=== PATIENT | female | born 1960 | race Caucasian/White ===

== ENCOUNTER 2019-03-12 08:18 | Day surgery (SDC) | payer OTHER, SELFPAY ==
[2019-03-09 13:12] VITALS: BMI 42.8
[2019-03-12] VITALS (12 sets, daily range): BP systolic 92–162; BP diastolic 35–80; PULSE 51–77; RESP 10–20; TEMP 36.4–36.6; O2SAT 93–99; BMI 42.8
[2019-03-12] MEDS: LACTATED RINGERS 1,000 ML 42 ML IV ×2 (08:54→12:25)
--- NOTE | 2019-03-12 10:47 | PM.PREOP ---
Pre-operative Note Interval Note History & Physical reviewed/Exam performed by Physician: Yes Changes to H&P: No
--- NOTE | 2019-03-12 10:48 | PM.OP.1 ---
Operative Date/Time/Diagnoses Date of procedure: 03/12/19 Time of procedure: 10:48 Pre-op diagnosis: Left bone spur and Achilles tendonitis Post-op diagnosis: same Procedure & Clinicians Procedure: Left retrocalcaneal exostectomy with Achilles tendon debridement and anchoring Same procedure as scheduled: Yes Indications: Painful left heel and Achilles. Conservative measures failed to alleviate her pain and she wished to have surgical intervention at this time. Surgeon: Nuris Martines Click Yes if Unassisted: Yes Anesthesia Type: General Operative Notes Closure Type: primary Specimen(s): none sent Prosthetic devices, grafts, tissues, transplants, or devices: Arthrex speed bridge Estimated Blood Loss (mL): 20 Blood products transfused: none Procedure in detail: Patient was brought to the operating room. On the gurney, general anesthesia was rendered by the anesthesiologist. Next she was carefully positioned prone on operative table, well padded and appropriately aligned. The foot and ankle were prepped and draped in the usual aseptic manner. The tourniquet was inflated to the thigh. After a check of anesthesia incision was made on the posterior aspect of the left calcaneus at the insertion point of the Achilles to the heel. The incision was deepened through subcutaneous tissues being careful to identify and retract all vital neural and vascular structures. All bleeders were cauterized and ligated as necessary. The capsule surrounding the Achilles tendon was gently opened and reflected and the enlarged insertion point of the Achilles tendon was noted. The insertion was divided centrally and Achilles tendon was reflected laterally and medially. This exposed areas of the tendon that were significantly thickened as well as areas that included mild calcifications within the distal lateral tendon. These bony prominences within tendon and calcifications were gently removed and some of the extraordinarily thickened scarred areas of the tendon distally were also reduced. A osteotome was used to chamfer away the posterior spurring of the calcaneus. This was then gently smoothed with a rasp. The area was irrigated with copious amounts of normal sterile saline. Following the technique of the Arthrex SpeedBridge, drill holes were placed proximally on the posterior aspect of the calcaneus medially and laterally. This was then tapped and each anchor was inserted. Once appropriately seated the FiberWire attached to the anchor was brought up through the Achilles tendon at the appropriate location. Next, distally on the calcaneus another set of 2 holes were drilled in the same manner and tapped. Following the speed bridge protocol, under appropriate tension threading each of the 2 sides of the more proximal anchors' suture, this was then placed in each of the holes. Each of these 2 anchors were then seated appropriately and was under good tension. Excess fiber tape was trimmed. A free needle was used to take some of the included FiberWire suture on each side and reinforce the attachment. Care was taken to not make this a proud knot. 3-0 Vicryl was used to reinforce and repair the remainder of the Achilles tendon and range of motion was available and strong. The area was irrigated once more with normal sterile saline and the tourniquet was deflated. A prompt hyperemic response was seen to the foot and ankle. Tendon capsule was then repaired and subcutaneous closure was performed with Vicryl. Skin was closed with nylon and she was placed in a sterile lightly compressive dressing. She was then also placed in her postoperative boot. She was transferred to the PACU with vital signs stable and vascular status intact. Complications: none Post-operative Condition: stable Disposition: PACU Plan for aftercare: Following a period of postoperative monitoring, the patient be discharged home on written and oral postoperative instructions including keeping the dressing dry and intact, nonweightbearing on the operative foot, icing and elevating the foot when seated home. DVT prevention techniques have been reviewed. For the 1st postoperative visit the dressing will be changed and close to the 3rd postoperative week we will likely be able to begin a transition to partial weight-bearing.
[2019-03-12] MEDS: CEFAZOLIN 2 GM/100 ML FROZ.PIGGY IV (11:00)
[2019-03-12] MEDS: BUPIVACAINE 0.5% (PF) VIAL 30 ML INJ (11:15)
[2019-03-12] MEDS: HYDROMORPHONE 2 MG INJ 0.5 MG IV ×4 (13:15→13:30)
[2019-03-12] MEDS: HYDROCODONE/ACET 5/325 TABLET 1 TAB PO (13:32)
== END 2019-03-12 14:25 | disposition home or self-care (01) ==
LOC: OR 08:28
PROVIDERS: Family Provider Family Medicine; PCP Family Medicine; Visit Provider Podiatrist
PROC: (CPT 28119; principal; 2019-03-12 09:45)
PROC: (CPT 27650; 2019-03-12 09:45)
DX: M76.62 Achilles tendinitis, left leg (principal); M77.32 Calcaneal spur, left foot; M19.072 Primary osteoarthritis, left ankle and foot; E66.9 Obesity, unspecified; Z68.41 Body mass index [BMI] 40.0-44.9, adult; I48.91 Unspecified atrial fibrillation
CPT/HCPCS: 27654; 28120; J0330; J0690; J1100; J1170; J2405; J2704; J3010

== ENCOUNTER → 2019-10-04 11:05 | Outpatient (CLI) | payer OTHER, SELFPAY ==
--- NOTE | 2019-10-04 | DI.RAD.S_ITS ---
PROCEDURE: XR CALCANEOUS LT MIN 2V INDICATIONS: Achilles tendinitis, left leg TECHNIQUE: Two views of the calcaneus were acquired. COMPARISON: None. FINDINGS: Bones: No fractures or dislocations. No suspicious bony lesions. A plantar calcaneal spur is seen. There is a relatively prominent Achilles insertion spur, fragmentation. Soft tissues: No suspicious calcifications. Achilles tendon appears normal. IMPRESSION: Relatively prominent Achilles insertion spur, with fragmentation. A plantar calcaneal spur is also seen. Dictated by: Gallito Martinez M.D. on 10/04/2019 at 10:39 Approved by: Gallito Martinez M.D. on 10/04/2019 at 10:41
--- NOTE | 2019-10-04 | DI.MRI.S_ITS ---
PROCEDURE: MR ANKLE LT WO CON INDICATIONS: Achilles tendinitis, left leg TECHNIQUE: Noncontrast sagittal T1 spin echo and T2 fast spin echo with fat saturation, axial proton density fast spin echo and T2 fast spin echo with fat saturation, coronal T1 spin echo and T2 fast spin echo with fat saturation through the ankle/hindfoot. COMPARISON: [facility], CR, XR ANKLE 3+ VIEWS LEFT, 12/29/2018, 14:44. FINDINGS: Image quality: Excellent. Bones and joints: No bone marrow contusions or fractures. No hindfoot coalitions. No osteochondral injuries of the talar dome. No pathologic joint effusions. Medial structures: The posterior tibialis, flexor digitorum longus, and flexor hallucis longus tendons are intact. The posterior tibial neurovascular bundle appears normal within the tarsal tunnel, without extrinsic mass effect. The deep layer (anterior and posterior tibiotalar ligaments) and superficial layer (tibionavicular, tibiospring, and tibiocalcaneal ligaments) of the deltoid ligament appear normal. The spring ligament components (superomedial calcaneonavicular, medioplantar oblique calcaneonavicular, and inferoplantar longitudinal ligaments) are intact. Lateral structures: The anterior talofibular, calcaneofibular, and posterior talofibular ligaments appear intact. More superiorly, the anterior and posterior tibiofibular ligaments appear intact, as is the intermalleolar ligament. The tibiofibular syndesmosis is normal in width at 2 mm or less. The peroneus longus and brevis tendons demonstrate normal location. Peroneal brevis and longus tendons are thickened compatible with mild tendinopathy. Adjacent bony peroneal tubercle and retrotrochlear prominence are normal in size. The sinus tarsi demonstrates normal fatty signal, without edema, fibrosis, or cyst formation. Visualized sinus tarsi components (cervical ligament, interosseous talocalcaneal ligament, roots of the inferior extensor retinaculum) appear normal. The calcaneonavicular and calcaneocuboid components of the bifurcate ligament appear intact. The dorsal calcaneocuboid ligament appears intact. Anterior structures: The tibialis anterior, extensor hallucis longus, and extensor digitorum longus tendons appear intact. The dorsal talonavicular ligament appears intact. Posterior and plantar structures: Postsurgical changes compatible with Achilles tendon repair are noted. There is thickening and increased T2 signal within the distal Achilles tendon along with pre-Achilles edema and fluid in the pre-Achilles bursa which could represent postsurgical change versus acute superimposed on chronic tendinopathy. The repaired Achilles tendon is intact. There is thickening of the medial band of the plantar fascia compatible with chronic fasciitis. Lateral band of the plantar fascia is normal thickness. No abductor digiti quinti muscle atrophy to suggest Salgado neuropathy. IMPRESSION: 1. Status post Achilles tendon repair. No recurrent Achilles tendon tear. 2. Thickening and increased internal signal involving the repaired Achilles tendon which could represent postsurgical change versus acute superimposed upon chronic tendinopathy. 3. Mild peroneal brevis and longus tendinopathy. 4. Chronic medial band plantar fasciitis. Dictated by: Kenia Winchester MD, PhD on 10/04/2019 at 12:30 Approved by: Kenia Winchester MD, PhD on 10/05/2019 at 13:14
== END ==
PROVIDERS: Family Provider Family Medicine; PCP Family Medicine; Referring Provider Family Medicine; Visit Provider Podiatrist
DX: M76.62 Achilles tendinitis, left leg (principal); M79.672 Pain in left foot; M77.32 Calcaneal spur, left foot; M72.2 Plantar fascial fibromatosis
CPT/HCPCS: 73650; 73721

== ENCOUNTER → 2022-01-31 15:14 | Outpatient (CLI) | payer OTHER, SELFPAY ==
[2022-01-31 16:28] LABS: COVID19 -Nasal RAPID POSITIVE (Negative)
== END ==
PROVIDERS: Family Provider Family Medicine; PCP Student in an Organized Health Care Education/Training Program; Visit Provider Obstetrics & Gynecology
DX: U07.1 COVID-19 (principal)
CPT/HCPCS: 87635

== ENCOUNTER → 2022-03-28 09:42 | Outpatient (CLI) | payer OTHER, SELFPAY ==
[2022-03-28 10:41] LABS: COVID19 -Nasal RAPID Negative (Negative)
== END ==
PROVIDERS: Family Provider Family Medicine; PCP Student in an Organized Health Care Education/Training Program; Visit Provider Obstetrics & Gynecology
DX: Z20.822 Contact with and (suspected) exposure to COVID-19 (principal); Z01.812 Encounter for preprocedural laboratory examination
CPT/HCPCS: 87635

== ENCOUNTER 2022-03-29 08:02 | Day surgery (SDC) | payer OTHER, SELFPAY ==
[2022-03-26 07:59] VITALS: BMI 43.0
[2022-03-29] VITALS (8 sets, daily range): BP systolic 111–139; BP diastolic 48–72; PULSE 68–94; RESP 11–23; TEMP 36.2–36.4; O2SAT 95–97; BMI 42.9
[2022-03-29] MEDS: LACTATED RINGERS 1,000 ML 42 ML IV ×2 (08:54→14:51)
--- NOTE | 2022-03-29 13:45 | PM.PREOP ---
Pre-operative Note COVID-19 COVID-19 status: Negative Result date/Date tested (Pos, Neg/Pending): 03/28/22 Criteria for continued procedure: Non-surgical alternatives not available or appropriate per current SOC Interval Note History & Physical reviewed/Exam performed by Physician: Yes Changes to H&P: No
--- NOTE | 2022-03-29 15:15 | SUR.OPER ---
Lithotomy on padded OR bed, head on pillow, arms secured on padded arm boards at <90 degrees abduction. Legs secured in padded yellow fins stirrups.
--- NOTE | 2022-03-29 15:45 | P.OP_ITS ---
Operative Date/Time/Diagnoses Date of procedure: 03/29/22 Time of procedure: 14:40 Pre-op diagnosis: Post-menopausal bleeding Endometrial thickening Cervical stenosis Post-op diagnosis: same Procedure & Clinicians Procedure: Procedures Operation Date: 03/29/22 09:15 Actual Procedure Side Surgeon p Exam under anesthesia, cervical dilation (failed) Jose Carlos Neely MD Indications: Celeste is a 61-year-old A1, LMP at approximately age 52, who presents for evaluation of postmenopausal spotting after her primary care provider attempted to do an endometrial biopsy which was unsuccessful due to cervical stenosis.? Patient experienced menarche at age 14 and throughout her reproductive life has experienced irregular menses.? She was placed on oral contraceptives at age 18 and has been on oral contraceptives through much of her adult reproductive life.? She continued oral contraceptives until the age of 52 when she discontinued them and was menopausal thus had no further episodes of menses or spotting/bleeding.? She has never taken hormone replacement therapy.? Proximally 3 years ago she began having intermittent spotting and brownish discharge.? Pelvic ultrasound performed at [facility] on 11/02/2021 shows the uterus to be anteverted and normal in size measuring 7-8 cm in length and 4.7 cm in with an about 3.5 cm in the anterior-posterior dimension.? There were no uterine masses noted in the endometrial canal echo shows no discrete focal mass.? It is mildly borderline in thickness for a postmenopausal women who is not on HRT with the endometrial stripe did ranging from 5-7 mm.? In addition within the endocervical canal there is a trace of fluid.? The ovaries were unable to be v isualized.? ROS is notable for minimally symptomatic COVID infection diagnosed 12/14/2021 with negataive COVID test 12/19/2021.? After counseling and consideration of all options, the patient is opting for hysteroscopy with possible biopsies and dilation and curettage of uterus rather than attempt another in-office endometrial biopsy.? Her surgery is scheduled for 02/01/2022 in the [facility] and she presents today for pher scheduled surgery. Surgeon: Jose Carlos Neely Anesthesia Type: General Operative Notes Findings: Exam under anesthesia shows a normal vaginal canal with a small/normal size retroverted uterus and no palpable adnexal masses. The tract of the endocervical canal could not be identified during the course of surgery, therefore no dilation was able to be performed, and planned performance of hysteroscopy/D&C aborted. Closure Type: not applicable Specimen(s): none Estimated blood loss (mL): 10 Blood products transfused: none Procedure in detail: With the patient under satisfactory general anesthesia in the modified dorsal lithotomy position, the vagina, perineum, and lower abdomen were prepped and draped for hysteroscopy/D&C. A pre-surgical safety time-out was then taken in accordance with [facility] OR protocols. Examination under anesthesia was performed. A bivalve speculum was placed in the vagina and the cervix grasped with a single-tooth tenaculum. A flexible os finder was introduced into the stenotic os but could not be passed beyond proximally 1-2 cm. Attempts to follow the endocervical tract with the smallest available dilator was unsuccessful and therefore due to concerns of creating a false tract risking bleeding and/or injury to adjacent structures, the decision was made to abort the procedure and discuss potential next steps with the patient postoperatively. A small tear of the anterior lip of the cervix was repaired with a 3-0 chromic [id number] stitch and the speculum was removed from the vagina. The procedure was terminated and the patient awakened. She was then transferred to the PACU for a period of observation and recovery. Complications: none Post-operative Condition: stable Disposition: PACU Plan for aftercare: Routine postoperative care. Patient will return in 2 weeks to discuss potential next steps for evaluation of her postmenopausal bleeding with slight thickening of the endometrial stripe.
--- NOTE | 2022-04-04 12:45 | PM.GYNHP.1 ---
History of Present Illness History of Present Illness Narrative: Celeste is a 61-year-old A1, LMP at approximately age 52, who presents for evaluation of postmenopausal spotting after her primary care provider attempted to do an endometrial biopsy which was unsuccessful due to cervical stenosis.? Patient experienced menarche at age 14 and throughout her reproductive life has experienced irregular menses.? She was placed on oral contraceptives at age 18 and has been on oral contraceptives through much of her adult reproductive life.? She continued oral contraceptives until the age of 52 when she discontinued them and was menopausal thus had no further episodes of menses or spotting/bleeding.? She has never taken hormone replacement therapy.? Proximally 3 years ago she began having intermittent spotting and brownish discharge.? Pelvic ultrasound performed at [facility] on 11/02/2021 shows the uterus to be anteverted and normal in size measuring 7-8 cm in length and 4.7 cm in with an about 3.5 cm in the anterior-posterior dimension.? There were no uterine masses noted in the endometrial canal echo shows no discrete focal mass.? It is mildly borderline in thickness for a postmenopausal women who is not on HRT with the endometrial stripe did ranging from 5-7 mm.? In addition within the endocervical canal there is a trace of fluid.? The ovaries were unable to be visualized.? ROS is notable for minimally symptomatic COVID infection diagnosed 12/14/2021 with negataive COVID test 12/19/2021.? After counseling and consideration of all options, the patient is opting for hysteroscopy with possible biopsies and dilation and curettage of uterus rather than attempt another in-office endometrial biopsy.? Her surgery is scheduled for 02/01/2022 in the [facility] and she presents today for her scheduled surgery. [facility] Medical History Achilles tendonitis, bilateral Acid reflux COVID-19 virus infection (12/14/21) COVID-19 virus infection (01/31/22) Hypothyroid Migraines Osteoarthritis of left ankle Osteoarthritis of right ankle and foot Surgical History History of ankle surgery History of History of repair of left rotator cuff History of repair of right rotator cuff Hx of foot surgery (03/12/19) S/P ablation of atrial fibrillation Status post left foot surgery [place] teeth removed Social History household members: spouse Smoking Status: Never smoker alcohol intake: current Meds Home Medications and Allergies Home Medications Medication Instructions Recorded Confirmed Type fluticasone propionate 50 2 spray intranasal DAILY 03/09/19 03/29/22 History mcg/actuation nasal spray,suspension (Flonase Allergy Relief) levothyroxine 25 mcg tablet 75 mcg PO DAILY 03/09/19 03/29/22 History (Synthroid) loratadine 10 mg tablet 10 mg PO DAILY 03/09/19 03/29/22 History valacyclovir 500 mg tablet 500 mg PO DAILY 03/09/19 03/29/22 History (Valtrex) krill oil 500 mg capsule 500 mg PO DAILY 01/25/22 03/29/22 History ovckzgec-jkgi-fxemdwtj-folic acid 1 cap PO DAILY 01/25/22 03/29/22 History 66.7 mcg-biotin 1,666.7 mcg capsule (Hair, Skin and Nails-Argan Oil) omeprazole 20 mg tablet,delayed 20 mg PO DAILY PRN GI upset 01/25/22 03/29/22 History release Allergies Allergy/AdvReac Type Severity Reaction Status Date / Time clindamycin AdvReac Mild Abdominal Verified 03/29/22 15:31 Pain Review of Systems Review of Systems Narrative: Problem-specific ROS positives included in HPI Exam Vital Signs (past 8 hours): Oxygen Delivery Method Room Air Const General: cooperative and comfortable Nutritional Appearance: average body habitus Orientation: alert and oriented x3 HENMT Head: normal to inspection, atraumatic and abrasion Ears: hearing grossly normal bilaterally Face and sinus: face symmetric Eyes General: appearance normal, both eyes and all related structures Conjunctivae: conjunctivae normal Sclera: sclerae normal EOM: EOM intact bilaterally Neck Neck: normal visual inspection Resp Effort & Inspection: normal respiratory effort and able to speak in complete sentences Auscultation: clear to auscultation bilaterally Cardio Rate: regular rate Rhythm: regular rhythm Heart Sounds: S1 normal, S2 normal and no murmurs GI Inspection: normal to inspection Palpation: soft, no hepatosplenomegaly and No tender External Female Exam: normal external appearance Speculum Exam - Vagina: normal appearance of the vagina and normal vaginal discharge Speculum Exam - Cervix: normal appearance of the cervix and cervical os open Bimanual Exam- Vagina & Uterus: normal bimanual exam, uterine size normal and non-tender Bimanual Exam- Adnexa, other: normal adnexae, no masses and non-tender OB/External & Speculum: cervical os open Extrem General: no calf tenderness Psych Appearance: grossly normal Mental Status: mental status grossly normal Speech and Movement: speech and movement normal Mood: congruent mood Affect: normal affect Attitude: cooperative Thought Process: normal Thought Content: normal Judgment: judgment good Assessment & Plan Assessment and plan (1) Postmenopausal bleeding: Status: Acute (2) Abnormal vaginal bleeding with endometrial thickness greater than 5 mm present on transvaginal ultrasound in postmenopausal patient: Status: Acute (3) VALORIE (stress urinary incontinence, female): Status: Acute Plan Patient counseled regarding alternatives, risks, benefits, and potential complications associated with hysteroscopy with possible biopsies and dilation and curettage of the uterus.? With full understanding of the above, a written consent was executed, signed, and witnessed this date. Time Spent With Patient Critical Care time: I spent a total of [] minutes of critical care time on this patient's care today; this time is exclusive of procedural time.
== END 2022-03-29 16:15 | disposition home or self-care (01) ==
PROVIDERS: Family Provider Family Medicine; Referring Provider Obstetrics & Gynecology; Visit Provider Obstetrics & Gynecology
PROC: 0UDB8ZZ Extraction of Endometrium, Via Natural or Artificial Opening Endoscopic (ICD-10-PCS; CPT 58558; principal; 2022-03-29 09:15)
DX: N95.0 Postmenopausal bleeding (principal); R93.89 Abnormal findings on diagnostic imaging of other specified body structures; N88.2 Stricture and stenosis of cervix uteri
CPT/HCPCS: 57410; J1100; J2250; J2405; J2704; J3010

== ENCOUNTER 2023-05-02 10:48 | Emergency (ER) | payer OTHER, SELFPAY ==
[2023-05-02 10:51] VITALS: BP 192/76; PULSE 90; RESP 18; TEMP 36.6; O2SAT 97; BMI 44.8
[2023-05-02 11:29] LABS: Bacteria Urine Few (2-10); Culture Indicated Urine Cult Not Indicated; RBC Urine 1-5/HPF (0-5/HPF); Squamous Epithelial Cell Urine 0-1 /HPF (0-5/HPF); WBC Urine 0-1/HPF (0-5/HPF)
--- NOTE | 2023-05-02 11:35 | ED.FEMALEGU ---
HPI - Female Genitourinary <Angelina Raza PA-C - Last Filed: 05/02/23 12:19> General Chief complaint: Urogenital-Female Stated complaint: poss UTI Time Seen by Provider: 05/02/23 11:32 Source: patient Mode of arrival: Ambulatory History of Present Illness HPI Narrative: 62-year-old female with history of diabetes who presents today with 3 days of dysuria frequency and 1 episode of hematuria. She denies fever or chills or back pain or abdominal pain. She denies nausea vomiting. She reports having a urinary tract infection about 20 years ago and none since. She feels the onset was secondary to increase in bowel movements having started metformin recently. Related Data Home Medications Medication Instructions Recorded Confirmed fluticasone propionate 50 2 spray intranasal DAILY 03/09/19 03/29/22 mcg/actuation nasal spray,suspension (Flonase Allergy Relief) levothyroxine 25 mcg tablet 75 mcg PO DAILY 03/09/19 03/29/22 (Synthroid) loratadine 10 mg tablet 10 mg PO DAILY 03/09/19 03/29/22 valacyclovir 500 mg tablet 500 mg PO DAILY 03/09/19 03/29/22 (Valtrex) krill oil 500 mg capsule 500 mg PO DAILY 01/25/22 03/29/22 ydesnkke-muou-karrfoeb-folic acid 1 cap PO DAILY 01/25/22 03/29/22 66.7 mcg-biotin 1,666.7 mcg capsule (Hair, Skin and Nails-Argan Oil) omeprazole 20 mg tablet,delayed 20 mg PO DAILY PRN GI upset 01/25/22 03/29/22 release Previous Rx's Medication Instructions Recorded ibuprofen 600 mg tablet (IBU) 600 mg PO Q8H PRN pain #10 tabs 05/02/23 nitrofurantoin macrocrystal 100 mg 100 mg PO BID 5 days #10 caps 05/02/23 capsule phenazopyridine 100 mg tablet 100 mg PO TID #7 tabs 05/02/23 (Pyridium) Allergies Allergy/AdvReac Type Severity Reaction Status Date / Time clindamycin AdvReac Mild Abdominal Verified 05/02/23 10:54 Pain Review of Systems <Angelina Raza PA-C - Last Filed: 05/02/23 12:19> Review of Systems Narrative: GENERAL: Denies chills, fatigue, malaise, fever, sweats. HEENT: Denies sinus pain, ear pain, sore throat, difficulty swallowing, dizziness. RESPIRATORY: Denies dyspnea, cough, wheezing, hemoptysis, sputum. CARDIOVASCULAR: Denies chest pain, palpitations, orthopnea, edema, GASTROINTESTINAL: Denies nausea, vomiting, abdominal pain, constipation, melena. : Positive for urinary frequency, dysuria, mild hematuria. MUSCULOSKELETAL: denies weakness, joint pain, or bony pain SKIN: Denies rash, skin lesions, or other NEUROLOGIC: Denies weakness, headache, numbness, change in speech, confusion, seizures, incoordination. PSYCHIATRIC: No concerning psychosocial issues. 12 point review of systems is negative except for those stated above Patient History <Angelina Raza PA-C - Last Filed: 05/02/23 12:19> Medical History Achilles tendonitis, bilateral Acid reflux COVID-19 virus infection (12/14/21) COVID-19 virus infection (01/31/22) Hypothyroid Migraines Osteoarthritis of left ankle Osteoarthritis of right ankle and foot Surgical History History of ankle surgery History of History of repair of left rotator cuff History of repair of right rotator cuff Hx of foot surgery (03/12/19) S/P ablation of atrial fibrillation Status post left foot surgery [place] teeth removed alcohol intake frequency: holidays/special occasions only Substance Use Type: does not use Exam <Angelina Raza PA-C - Last Filed: 05/02/23 12:19> Narrative Exam Narrative: GEN: AOx3 and in no distress. EYES: Pupils are equal, round, and reactive to light and accommodation. Extraoccular muscles are intact bilaterally. There is no subconjunctival hemorrhage or exudate. CHEST: Lungs are clear to auscultation bilaterally and free of wheezes, rales, or rhonchi. Heart rate is regular rhythm, there are no murmurs, clicks, rubs, or gallops. There is no chest wall tenderness. ABD: Abdomen is soft and nontender. There is no guarding or rebound. No CVA tenderness to palpation. EXT: Full painless ROM of all extremities with no loss of sensation or strength. SKIN: Warm, pink, and dry. No erythema or rash Initial Vital Signs Initial Vital Signs: Vital Signs Temperature 97.9 F 05/02/23 10:51 Pulse Rate 90 05/02/23 10:51 Respiratory Rate 18 05/02/23 10:51 Blood Pressure 192/76 H 05/02/23 10:51 Pulse Oximetry 97 05/02/23 10:51 Oxygen Delivery Method Room Air 05/02/23 10:51 <Kaye Sandoval MD - Last Filed: 05/02/23 12:35> Initial Vital Signs Initial Vital Signs: Vital Signs Temperature 97.9 F 05/02/23 10:51 Pulse Rate 90 05/02/23 10:51 Respiratory Rate 18 05/02/23 10:51 Blood Pressure 192/76 H 05/02/23 10:51 Pulse Oximetry 97 05/02/23 10:51 Oxygen Delivery Method Room Air 05/02/23 10:51 Course <Angelina Raza PA-C - Last Filed: 05/02/23 12:19> Orders Ordered: ED Orders 05/02/23 11:00 Urine Microscopic Stat 05/02/23 12:11 Urine Culture Stat Discontinued Medications Ondansetron HCl (Ondansetron 4 Mg Odt) 4 mg SL NOW PRN PRN Reason: Nausea And Vomiting Vital Signs Vital signs: Vital Signs - 8 hr 05/02/23 10:51 05/02/23 12:04 Temperature 97.9 F Pulse Rate 90 80 Respiratory Rate 18 20 Blood Pressure 192/76 H 159/76 H Pulse Oximetry 97 95 Oxygen Delivery Method Room Air Room Air <Kaye Sandoval MD - Last Filed: 05/02/23 12:35> Orders Ordered: ED Orders 05/02/23 11:00 Urine Microscopic Stat 05/02/23 12:11 Urine Culture Stat Discontinued Medications Ondansetron HCl (Ondansetron 4 Mg Odt) 4 mg SL NOW PRN PRN Reason: Nausea And Vomiting Vital Signs Vital signs: Vital Signs - 8 hr 05/02/23 10:51 05/02/23 12:04 Temperature 97.9 F Pulse Rate 90 80 Respiratory Rate 18 20 Blood Pressure 192/76 H 159/76 H Pulse Oximetry 97 95 Oxygen Delivery Method Room Air Room Air MDM - Female Genitourinary <Angelina Raza PA-C - Last Filed: 05/02/23 12:19> Lab Data Labs: Lab Results 05/02/23 Range/Units 11:00 Urine RBC 1-5/hpf (0-5/HPF) Urine WBC 0-1/hpf (0-5/HPF) Ur Squamous Epith Cells 0-1 /hpf (0-5/HPF) Urine Bacteria Few (2-10) H (None) Ur Culture Indicated? Cult not indicated Urine Dip Bedside Urine Glucose Negative Bedside Urine Bilirubin - Negative Bedside Urine Ketone - Negative Urine Specific [place] 1.020 Bedside Urine Occult Blood + Bedside Urine pH 6.0 Bedside Urine Protein - Negative Bedside Urine Urobilinogen +/- 1mg Bedside Urine Nitrite - Negative Bedside Urine Leukocytes - Negative Esterase MDM Narrative Medical decision making narrative: MDM * differential diagnosis includes but not limited to cystitis, urethritis, kidney stone, bladder infection. * Prior records reviewed: History of diabetes with recent A1c of 6.0 it * My lab interpretation: Negative for leukocytes and nitrites, 1+ blood, micro sent. * My imgaing interpretation: * Clinical Decision Rules/Scores evaluated: * Independent discussions with: ED Course: Even though UA dip here isn't significant for UTI eye, patient has history is suspicious for bacterial infection. So I am going to go ahead and treat her with 5 days of Macrobid. She agrees to finish the course. Pyridium for comfort and ibuprofen for discomfort. Shared Decision Making: Patient verbalizes agreement with the plan Social Considerations: None Disposition: Discharged to home. <Kaye Sandoval MD - Last Filed: 05/02/23 12:35> Lab Data Labs: Lab Results 05/02/23 Range/Units 11:00 Urine RBC 1-5/hpf (0-5/HPF) Urine WBC 0-1/hpf (0-5/HPF) Ur Squamous Epith Cells 0-1 /hpf (0-5/HPF) Urine Bacteria Few (2-10) H (None) Ur Culture Indicated? Cult not indicated Urine Dip Bedside Urine Glucose Negative Bedside Urine Bilirubin - Negative Bedside Urine Ketone - Negative Urine Specific [place] 1.020 Bedside Urine Occult Blood + Bedside Urine pH 6.0 Bedside Urine Protein - Negative Bedside Urine Urobilinogen +/- 1mg Bedside Urine Nitrite - Negative Bedside Urine Leukocytes - Negative Esterase Discharge Plan Departure Patient Disposition: Home Clinical Impression: Cystitis Instructions: DI for Urinary Tract Infection (UTI) Activity Restrictions/Additional Instructions: You have symptoms of a urinary tract infection today although your urine dipstick did not indicate significant infection. However given your symptoms and history I feel it is fine to take a course of antibiotics. Please complete the entire course. The Pyridium is generally an as-needed medication which will help with the pain when you urinate. You can take the ibuprofen 2 to 3 times a day to help with pain as well. Hydrate well wipe from front to, clean the perineal area after bowel movement. Return for any onset of fever, sudden onset back pain or other concerning symptoms. Rachele to care for you today. Prescriptions: New nitrofurantoin macrocrystal 100 mg capsule 100 mg PO BID 5 Days Qty: 10 0RF Rx Instructions: must administer with a meal/food phenazopyridine [Pyridium] 100 mg tablet 100 mg PO TID Qty: 7 0RF ibuprofen [IBU] 600 mg tablet 600 mg PO Q8H MDD 2400 mg PRN (Reason: pain) Qty: 10 0RF No Action Hair, Skin and Nails-Argan Oil 66.7-1,666.7 mcg capsule 1 cap PO DAILY krill oil 500 mg capsule 500 mg PO DAILY omeprazole 20 mg tablet,delayed release (DR/EC) 20 mg PO DAILY PRN (Reason: GI upset) valacyclovir [Valtrex] 500 mg Tablet 500 mg PO DAILY levothyroxine [Synthroid] 25 mcg Tablet 75 mcg PO DAILY fluticasone propionate [Flonase Allergy Relief] 50 mcg/actuation [place],Suspension 2 spray INTRANASAL DAILY loratadine 10 mg Tablet 10 mg PO DAILY Referrals: Provider,Kyaw FRIEDMAN [Primary Care Provider] - Stand Alone Forms: Patient Portal/API ED Sign-out <Kaye Sandoval MD - Last Filed: 05/02/23 12:35> Cosign ED Attending Cosignature Attestation: I did not see this patient. I was available all times for consultation.
[2023-05-02 12:04] VITALS: BP 159/76; PULSE 80; RESP 20; O2SAT 95
== END 2023-05-02 12:06 | disposition home or self-care (01) ==
PROVIDERS: Emergency Medicine; Emergency Provider Physician Assistant; Family Provider Family Medicine
DX: N30.90 Cystitis, unspecified without hematuria (principal)
CPT/HCPCS: 81003; 81015; 99282; 99283

== ENCOUNTER → 2024-10-22 07:39 | Outpatient (CLI) | payer OTHER, SELFPAY ==
--- NOTE | 2024-10-22 07:41 | DI.MRI.S_ITS ---
PROCEDURE: MR HIP RT WO CON INDICATIONS: rt hip pain TECHNIQUE: Noncontrast coronal T1 spin echo and STIR through the bony pelvis. Coronal and axial T2 fast spin echo with fat saturation, sagittal T1 spin echo, and oblique axial T2 fast spin echo with fat saturation through the hip. COMPARISON: None. FINDINGS: Image quality: Excellent. Bones: Mild marrow edema and subchondral cyst formation is present at the right lateral acetabular roof (3/24). The bone marrow signal is otherwise normal. There is no evidence of acute fracture, osteonecrosis, or acetabular dysplasia. There is normal morphology of the femoral heads. Joints: The sacroiliac joints are preserved, without reactive marrow changes. There is mild bilateral hip osteoarthritis. There is no significant right hip joint effusion or pericapsular edema. Acetabular cartilage: There is deep partial thickness chondral loss at the right acetabulum overlying the area of subchondral cyst formation (6/9). Labrum: There is blunting of the right hip anterior-superior labrum, likely secondary to chronic labral tearing. There is no large paralabral cyst or chondrolabral separation. Bursae: There is no increased fluid within the greater trochanteric or iliopsoas bursae. Muscles: There is mild diffuse muscle atrophy without abnormal intramuscular edema. Tendons: Intermediate signal is present at the origins of the hamstring tendons bilaterally at the ischial tuberosities (3/16). Intermediate signal is also present at the insertions of the bilateral gluteus medius tendons on the greater trochanters (3/21). Nerves: The sciatic nerves are normal in signal and caliber. Vessels: The dominant flow voids are preserved. Other: No other acute abnormality. IMPRESSION: 1. Mild bilateral hip osteoarthritis, with associated articular cartilage loss at the right acetabular roof and subjacent subchondral cyst formation. 2. Mild bilateral hamstring origin tendinosis. 3. Mild bilateral gluteus medius insertional tendinosis. Dictated by: Jersey Sams M.D. on 10/22/2024 at 12:51 Approved by: Jersey Sams M.D. on 10/22/2024 at 12:59
== END ==
LOC: MRI 07:40
PROVIDERS: Family Provider Family Medicine
DX: M16.0 Bilateral primary osteoarthritis of hip (principal); M25.551 Pain in right hip; M67.952 Unspecified disorder of synovium and tendon, left thigh; M67.951 Unspecified disorder of synovium and tendon, right thigh
CPT/HCPCS: 73721

== ENCOUNTER → 2025-04-04 08:50 | Outpatient (CLI) | payer OTHER, SELFPAY ==
[2025-04-04 09:32] LABS: Hematocrit 38.5 % (36-46); Hemoglobin 12.9 g/dL (12.0-16.0); Mean Corpuscular HGB Conc 33.4 % (30-36); Mean Corpuscular Hemoglobin 28.7 PG (26-34); Mean Corpuscular Volume 85.9 fL (80-100); Platelet Count 321 X10^3/uL (150-400)
[2025-04-04 10:05] LABS: Blood Urea Nitrogen 12 mg/dL (7-17); Calcium 9.1 mg/dL (8.4-10.2); Carbon Dioxide 28 mmol/L (22-32); Chloride 102 mmol/L (98-107); Cholesterol 204 mg/dL (140-199); Estimated Glomerular Filt Rate > 60 mL/min (>60); Glucose 98 mg/dL (70-99); HDL Cholesterol 37 mg/dL (40-60); HEMOLYSIS < 15 (0-50); Potassium 4.5 mmol/L (3.4-5.1); Sodium 139 mmol/L (137-145); Triglycerides 303 mg/dL (35-150)
== END ==
PROVIDERS: Family Provider Family Medicine; Visit Provider Internal Medicine Cardiovascular Disease
DX: E78.5 Hyperlipidemia, unspecified (principal); I48.11 Longstanding persistent atrial fibrillation
CPT/HCPCS: 36415; 80048; 80061; 85027